=== PATIENT | male | born 1965 | race Caucasian/White ===

== ENCOUNTER 2016-11-12 19:06 | Inpatient (IN) | payer MEDICAID ==
[~2016-11-12] VITALS: Ht 170.2 cm; Wt 65.3 kg
[2016-11-12 20:10] LABS: Basophils # (auto) 0.1 uL; Basophils % (auto) 0.4 % (0.0-2.0); Eosinophils # (auto) 0.1 uL; Eosinophils % (auto) 0.6 % (0.0-7.0); Hematocrit 40.8 % (41.0-53.0); Hemoglobin 13.6 g/dL (13.5-17.5); Lymphocytes # (auto) 1.7 uL; Lymphocytes % (auto) 14.7 % (10.0-50.0); Mean Corpuscular Hemoglobin 30.4 pg (28.0-32.0); Mean Corpuscular Hgb Conc. 33.5 g/dL (32.0-36.0); Mean Corpuscular Volume 90.7 fL (80.0-100.0); Mean Platelet Volume 6.8 fL (7.4-10.4); Monocytes # (auto) 0.9 uL; Monocytes % (auto) 7.8 % (0.0-12.0); Neutrophils # (auto) 8.9 uL; Neutrophils % (auto) 76.5 % (37.0-80.0); Platelet Count (auto) 436 10^3/uL (140-450); Red Cell Distribution Width 12.6 % (11.6-16.0); White Blood Cell 11.7 10^3/uL (4.4-10.8)
[2016-11-12 20:24] LABS: INR 1.01 (0.9-1.15); Partial Thromboplastin Time 30.2 sec (22.64-33.71)
[2016-11-12] MEDS ORDERED: HYDROmorphone HCL 2 MG/ML VL IV ONE ×2 (20:30→23:15)
[2016-11-12] MEDS ORDERED: SODIUM CHLORIDE 0.9% 1,000 ML IVB ONE (20:30)
[2016-11-12] MEDS ORDERED: ONDANSETRON HCL 4 MG/2 ML VIAL IV ONE (20:30)
[2016-11-12 20:35] LABS: Albumin 3.5 g/dL (3.4-5.0); BUN/Creatinine Ratio 12.2; Calcium 8.5 mg/dL (8.5-10.1); Potassium 3.9 mmol/L (3.5-5.1)
[2016-11-12] MEDS ORDERED: IOHEXOL 300 MG/ML 100ML BOTTLE IJ ONE (20:36)
[2016-11-12 20:38] LABS: Bilirubin, Total 0.4 mg/dL (0.2-1.0); Total Protein 8.1 g/dL (6.4-8.2)
[2016-11-12 21:03] LABS: Urine Bilirubin Negative (Negative); Urine Blood Negative /uL (Negative); Urine Color Yellow (Yellow); Urine Glucose Normal (Normal); Urine Ketone Negative (Negative); Urine Nitrite Negative (Negative); Urine RBC 1 /hpf (0 - 3); Urine Urobilinogen Normal (Negative); Urine pH 7.5 (5.0-8.0)
[2016-11-13] MEDS ORDERED: ETOMIDATE (2MG/ML) 20ML VIAL IV ONE (01:15)
[2016-11-13] MEDS ORDERED: fentaNYL CITRATE 100 MCG/2 ML VL IV ONE (01:15)
[2016-11-13] MEDS ORDERED: PIPERACILLIN-TAZOB 3.375GM 100 ML IV ONE ×2 (01:30→10:00)
[2016-11-13] MEDS ORDERED: LORazepam 2MG/ML-1ML VIAL ONE (02:13)
[2016-11-13] MEDS ORDERED: cefTRIAXone 1GM/50ML D5W 50 ML IV ONE (02:30)
[2016-11-13] MEDS ORDERED: LORazepam 2MG/ML-1ML VIAL IV ONE (02:30)
[2016-11-13] MEDS: SODIUM CHLORIDE 0.9% 1,000 ML IV SCH ×3 (06:05→21:40)
[2016-11-13] MEDS ORDERED: SODIUM CHLORIDE 0.9% 1,000 ML IV ONE (06:13)
[2016-11-13] MEDS ORDERED: MORPHINE SULF INJ 2 MG/ML SYRINGE 1ML IV PRN (06:15)
[2016-11-13] MEDS ORDERED: ACETAMINOPHEN 325 MG TAB PO PRN (06:15)
[2016-11-13] MEDS ORDERED: DOCUSATE SOD 100 MG CAP PO PRN (06:15)
[2016-11-13] MEDS ORDERED: NITROGLYCERIN 0.4 MG SL TAB SL PRN (06:15)
[2016-11-13] MEDS ORDERED: CLINDAMYCIN 300MG IV 50 ML IV SCH (07:00)
[2016-11-13] MEDS ORDERED: PIPERACILLIN-TAZOB 3.375GM 100 ML IV SCH (07:00)
[2016-11-13 08:24] VITALS: BP 115/73
[2016-11-13 08:53] VITALS: BP 115/73
[2016-11-13] MEDS ORDERED: ENOXAPARIN SOD 30 MG/0.3 ML SYRINGE SC SCH (10:00)
[2016-11-13] MEDS: ENOXAPARIN SOD 40 MG/0.4 ML SYRINGE SC SCH (10:00)
[2016-11-13] MEDS ORDERED: CLINDAMYCIN 300MG IV 50 ML IV ONE (12:00)
[2016-11-13 12:17] LABS: Basophils # (auto) 0 uL; Basophils % (auto) 0.3 % (0.0-2.0); Eosinophils # (auto) 0 uL; Eosinophils % (auto) 0.3 % (0.0-7.0); Hematocrit 37.5 % (41.0-53.0); Hemoglobin 12.6 g/dL (13.5-17.5); Lymphocytes # (auto) 1.4 uL; Lymphocytes % (auto) 13.8 % (10.0-50.0); Mean Corpuscular Hemoglobin 30.6 pg (28.0-32.0); Mean Corpuscular Hgb Conc. 33.6 g/dL (32.0-36.0); Mean Corpuscular Volume 91.1 fL (80.0-100.0); Mean Platelet Volume 6.7 fL (7.4-10.4); Monocytes # (auto) 1.3 uL; Monocytes % (auto) 12.9 % (0.0-12.0); Neutrophils # (auto) 7.4 uL; Neutrophils % (auto) 72.7 % (37.0-80.0); Platelet Count (auto) 366 10^3/uL (140-450); Red Cell Distribution Width 12.7 % (11.6-16.0); White Blood Cell 10.1 10^3/uL (4.4-10.8)
[2016-11-13 12:41] LABS: BUN/Creatinine Ratio 8.6; Calcium 8.2 mg/dL (8.5-10.1); Potassium 3.4 mmol/L (3.5-5.1)
[2016-11-13] MEDS: MULTIPLE VITAMIN TAB PO SCH (12:45)
[2016-11-13] MEDS: ZINC SULFATE 220 MG CAP PO SCH (12:45)
[2016-11-13] MEDS: LEVOFLOXACIN 750MG 150 ML IV SCH (12:46)
[2016-11-13] MEDS: ASCORBIC ACID 500 MG TAB PO SCH ×2 (12:46→21:39)
[2016-11-13] MEDS: FAMOTIDINE 20 MG TAB PO SCH ×2 (12:46→21:39)
[2016-11-13] MEDS: MORPHINE SULF INJ 2 MG/ML SYRINGE 1ML IV PRN ×3 (13:00→21:40)
[2016-11-13] MEDS: metroNIDAZOLE 500MG/100ML 100 ML IV SCH ×2 (13:41→21:39)
[2016-11-13] MEDS: ONDANSETRON HCL 4 MG/2 ML VIAL IV PRN ×2 (14:30→21:40)
[2016-11-13] MEDS ORDERED: POTASSIUM CHL 20 Meq TABLET PO ONE (16:00)
[2016-11-13 17:00] VITALS: BP 124/65
[2016-11-13] MEDS: TEMAZEPAM 15 MG CAP PO PRN (21:39)
[2016-11-13 23:17] VITALS: BP 125/68
[2016-11-14] VITALS (7 sets, daily range): BP systolic 108–134; BP diastolic 63–77
[2016-11-14] MEDS: ONDANSETRON HCL 4 MG/2 ML VIAL IV PRN ×4 (04:35→20:51)
[2016-11-14] MEDS: MORPHINE SULF INJ 2 MG/ML SYRINGE 1ML IV PRN ×4 (04:35→20:51)
[2016-11-14] MEDS: SODIUM CHLORIDE 0.9% 1,000 ML IV SCH ×2 (05:44→15:37)
[2016-11-14] MEDS: metroNIDAZOLE 500MG/100ML 100 ML IV SCH ×3 (05:44→22:28)
[2016-11-14 06:04] LABS: Basophils # (auto) 0 uL; Basophils % (auto) 0.3 % (0.0-2.0); Eosinophils # (auto) 0.1 uL; Eosinophils % (auto) 1.2 % (0.0-7.0); Hematocrit 37.7 % (41.0-53.0); Hemoglobin 12.7 g/dL (13.5-17.5); Lymphocytes # (auto) 1.8 uL; Lymphocytes % (auto) 18.6 % (10.0-50.0); Mean Corpuscular Hemoglobin 30.3 pg (28.0-32.0); Mean Corpuscular Hgb Conc. 33.8 g/dL (32.0-36.0); Mean Corpuscular Volume 89.5 fL (80.0-100.0); Mean Platelet Volume 6.2 fL (7.4-10.4); Monocytes # (auto) 1.3 uL; Monocytes % (auto) 13.3 % (0.0-12.0); Neutrophils # (auto) 6.4 uL; Neutrophils % (auto) 66.6 % (37.0-80.0); Platelet Count (auto) 374 10^3/uL (140-450); Red Cell Distribution Width 12.9 % (11.6-16.0); White Blood Cell 9.6 10^3/uL (4.4-10.8)
[2016-11-14 06:23] LABS: Potassium 4.1 mmol/L (3.5-5.1)
[2016-11-14 06:27] LABS: BUN/Creatinine Ratio 10.3; Calcium 8.7 mg/dL (8.5-10.1)
[2016-11-14 06:34] LABS: Bilirubin, Total 0.3 mg/dL (0.2-1.0)
[2016-11-14] MEDS ORDERED: LISI10TA6 PO (09:54)
[2016-11-14] MEDS: ENOXAPARIN SOD 40 MG/0.4 ML SYRINGE SC SCH (10:00)
[2016-11-14] MEDS: ASCORBIC ACID 500 MG TAB PO SCH ×2 (10:56→22:28)
[2016-11-14] MEDS: ZINC SULFATE 220 MG CAP PO SCH (10:56)
[2016-11-14] MEDS: MULTIPLE VITAMIN TAB PO SCH (10:56)
[2016-11-14] MEDS: LEVOFLOXACIN 750MG 150 ML IV SCH (10:56)
[2016-11-14] MEDS: FAMOTIDINE 20 MG TAB PO SCH ×2 (10:56→22:28)
[2016-11-14] MEDS: NEOMYCIN-BACITRACIN-POLYM UNITDOSE PKG TOP OINT TOP SCH ×2 (17:37→22:28)
[2016-11-14] MEDS ORDERED: NEOMYCIN-BACITRACIN-POLYM 15GM TOP OINT TOP SCH (22:00)
[2016-11-14] MEDS: TEMAZEPAM 15 MG CAP PO PRN (22:40)
[2016-11-15] MEDS ORDERED: IBUPROFEN 400 MG TAB PO PRN (00:30)
[2016-11-15] MEDS: SODIUM CHLORIDE 0.9% 1,000 ML IV SCH ×2 (00:42→09:08)
[2016-11-15] MEDS ORDERED: IBUPROFEN 600 MG TAB PO PRN (00:45)
[2016-11-15] MEDS: ONDANSETRON HCL 4 MG/2 ML VIAL IV PRN ×2 (03:15→09:02)
[2016-11-15] MEDS: MORPHINE SULF INJ 2 MG/ML SYRINGE 1ML IV PRN ×2 (03:15→09:02)
[2016-11-15 05:22] VITALS: BP 106/61
[2016-11-15] MEDS: metroNIDAZOLE 500MG/100ML 100 ML IV SCH ×2 (05:46→17:10)
[2016-11-15] MEDS: NEOMYCIN-BACITRACIN-POLYM UNITDOSE PKG TOP OINT TOP SCH ×2 (05:46→17:10)
[2016-11-15 08:00] VITALS: BP 118/63
[2016-11-15 08:26] VITALS: BP 118/63
[2016-11-15] MEDS: ASCORBIC ACID 500 MG TAB PO SCH (09:44)
[2016-11-15] MEDS: ZINC SULFATE 220 MG CAP PO SCH (09:44)
[2016-11-15] MEDS: ENOXAPARIN SOD 40 MG/0.4 ML SYRINGE SC SCH (09:44)
[2016-11-15] MEDS: MULTIPLE VITAMIN TAB PO SCH (09:44)
[2016-11-15] MEDS: FAMOTIDINE 20 MG TAB PO SCH (09:44)
[2016-11-15] MEDS: LEVOFLOXACIN 750MG 150 ML IV SCH (09:44)
[2016-11-15 12:39] VITALS: BP 129/72
[2016-11-15 16:40] VITALS: BP 122/73
[2016-11-15 16:55] VITALS: BP 122/73
== END 2016-11-15 16:55 | disposition home or self-care (01) | DRG 951 ==
LOC: ER 19:17 → TELE 19:18 → EAST 11-13 07:57 → WEST WING 11-13 11:50
PROVIDERS: ADMIT Emergency Medicine; ATTEND Internal Medicine
PROC: 0D9P0ZZ Drainage of Rectum, Open Approach (ICD-10-PCS; principal; 2016-11-12)
DX: N15.1 Renal and perinephric abscess (principal); K61.2 Anorectal abscess; I10 Essential (primary) hypertension; K64.9 Unspecified hemorrhoids; Z71.89 Other specified counseling
CPT/HCPCS: 36415; 71010; 74177; 80048; 80053; 81001; 82270; 83605; 85025; 85610; 85652; 85730; 86141; 87040; 87077; 87186; 87205; J0696; J1956; J2405; J2543; J3490